=== PATIENT | male | born 1945 | race Caucasian/White ===

== ENCOUNTER 2016-11-15 16:08 | Emergency (ER) | payer MEDICARE, OTHER ==
[2016-11-15] VITALS (7 sets, daily range): BP systolic 102–143; BP diastolic 67–76; PULSE 90–100; RESP 16–20; TEMP 98.1–102.8; O2SAT 90–99
[~2016-11-15 16:08] MED LIST: LEVA500T PO
[2016-11-15] MEDS ORDERED: SODIUM CHLOR 0.9% 1000 ML INJ 1,000 ML IV ONE ×2 (17:27)
[2016-11-15] MEDS ORDERED: ACETAMINOPHEN 325 MG TAB PO ONE (17:30)
--- NOTE | 2016-11-15 17:47 | RADHPO ---
EXAM DATE/TIME: 11/15/2016 17:37 [facility] COMPARISON: No previous studies available for comparison. INDICATIONS : Fever MEDICAL HISTORY : None. SURGICAL HISTORY : None. ENCOUNTER: Initial ACUITY: 2 days PAIN SCORE: 3/10 LOCATION: Bilateral chest FINDINGS: There is trace bibasilar atelectasis. No pleural effusion. No pneumothorax. Heart size normal. Old, healed left rib fractures are noted. CONCLUSION: Trace bibasilar atelectasis. No other acute cardiopulmonary disease demonstrated. Multiple old, heale d left rib fractures. Wesley Antonio MD on November 15, 2016 at 17:45 Board Certified Radiologist. This report was verified electronically.
--- NOTE | 2016-11-15 18:01 | PD ---
HPI . Fever and fatigue Chief Complaint: Fever Time Seen by Provider: 17:19 Travel History International Travel<30 days: No Contact w/Intl Traveler<30days: No Traveled to known affect area: No History of Present Illness HPI The patient presents with a one-day history of fever and fatigue. He states that he felt similarly in the past when he had a UTI. He currently has a stent in his right ureter because of kidney stones. He's had the stent for about 2 weeks. He states that he has been urinating more frequently since the stent was placed that there has been no recent change in his urination. He denies dysuria or malodorous urine. He reports a temperature at home of 103. Patient reports no other obvious cause for fever such as cold symptoms, cough, vomiting and diarrhea. PFSH Past Medical History Hx Anticoagulant Therapy: No Blood Disorders: No Cancer: No Cardiovascular Problems: No Chemotherapy: No Cerebrovascular Accident: No Diabetes: No Diminished Hearing: No Endocrine: No Gastrointestinal Disorders: No Genitourinary: No Hepatitis: No Hiatal Hernia: No Hypertension: No Immune Disorder: No Inguinal Hernia: Yes Implanted Vascular Access Dvce: No Kidney Stones: Yes Medical other: No Musculoskeletal: No Neurologic: No Psychiatric: No Reproductive: No Respiratory: No Immunizations Current: Yes Thyroid Disease: No Past Surgical History Abdominal Surgery: No AICD: No Body Medical Devices: BILATERAL URETERAL STENTS Cardiac Surgery: No Ear Surgery: No Endocrine Surgery: No Eye Surgery: No Genitourinary Surgery: Yes (lithotripsy, LEFT, BILATERAL URETERAL STENTS) Gynecologic Surgery: No Joint Replacement: No Neurologic Surgery: No Oral Surgery: No Pacemaker: No Thoracic Surgery: No Other Surgery: Yes (Inguinal hernia repair) Social History Alcohol Use: No Tobacco Use: No Substance Use: No Allergies-Medications (Allergen,Severity, Reaction): Coded Allergies: Aspirin (Verified Allergy, Severe, HIVES, 10/15/16) Reported Meds & Prescriptions Reported Meds & Active Scripts Active No Active Prescriptions or Reported Medications Review of Systems Except as stated in HPI: all other systems reviewed are Neg General / Constitutional: Positive: Fever, Chills, Other (fatigue) HENT: No: Sore Throat, Rhinitis, Rhinorrhea, Congestion, Neck Stiffness Respiratory: No: Cough Gastrointestinal: No: Nausea, Vomiting, Diarrhea Genitourinary: Positive: Frequency, No: Dysuria Physical Exam Narrative GENERAL: Patient is awake and alert and acts like he doesn't feel well. SKIN: Warm and dry. HEAD: Atraumatic. Normocephalic. EYES: Pupils equal and round. ENT: No nasal bleeding or discharge. Mucous membranes pink and moist. NECK: Trachea midline. CARDIOVASCULAR: Regular rate and rhythm. RESPIRATORY: No accessory muscle use. Lungs are clear to auscultation with good air movement throughout. GASTROINTESTINAL: Abdomen soft, non-tender, nondistended. There is no CVA tenderness. MUSCULOSKELETAL: No obvious deformities. No edema. NEUROLOGICAL: Awake and alert. No obvious cranial nerve deficits. Motor grossly within normal limits. Normal speech. PSYCHIATRIC: Appropriate mood and affect; insight and judgment normal. Data Data Last Documented VS Vital Signs Date Time Temp Pulse Resp B/P Pulse Ox O2 Delivery O2 Flow Rate FiO2 11/15/16 18:41 91 18 102/67 95 Nasal Cannula 2 11/15/16 17:27 101.2 Orders Electrocardiogram (11/15/16 17:27) Complete Blood Count With Diff (11/15/16 17:27) Comprehensive Metabolic Panel (11/15/16 17:27) Lactic Acid Sepsis Protocol (11/15/16 17:27) Urinalysis - C+S If Indicated (11/15/16 17:27) Blood Culture (11/15/16 17:27) Chest, Single Ap (11/15/16 17:27) Iv Access Insert/Monitor (11/15/16 17:27) Acetaminophen (Tylenol) (11/15/16 17:30) Sodium Chlor 0.9% 1000 Ml Inj (Ns 1000 M (11/15/16 17:27) Sodium Chlor 0.9% 1000 Ml Inj (Ns 1000 M (11/15/16 17:27) Urine Culture (11/15/16 17:47) Ceftriaxone Inj (Rocephin Inj) (11/15/16 19:00) Labs Laboratory Tests Test 11/15/16 17:47 White Blood Count 14.6 TH/MM3 Red Blood Count 4.76 MIL/MM3 Hemoglobin 14.5 GM/DL Hematocrit 43.2 % Mean Corpuscular Volume 90.7 FL Mean Corpuscular Hemoglobin 30.5 PG Mean Corpuscular Hemoglobin 33.6 % Concent Red Cell Distribution Width 13.2 % Platelet Count 205 TH/MM3 Mean Platelet Volume 8.2 FL Neutrophils (%) (Auto) 84.8 % Lymphocytes (%) (Auto) 5.7 % Monocytes (%) (Auto) 9.2 % Eosinophils (%) (Auto) 0.1 % Basophils (%) (Auto) 0.2 % Neutrophils # (Auto) 12.5 TH/MM3 Lymphocytes # (Auto) 0.8 TH/MM3 Monocytes # (Auto) 1.3 TH/MM3 Eosinophils # (Auto) 0.0 TH/MM3 Basophils # (Auto) 0.0 TH/MM3 CBC Comment DIFF FINAL Differential Comment Urine Color YELLOW Urine Turbidity CLOUDY Urine pH 7.0 Urine Specific Stitzer 1.018 Urine Protein 100 mg/dL Urine Glucose (UA) NEG mg/dL Urine Ketones NEG mg/dL Urine Occult Blood LARGE Urine Nitrite NEG Urine Bilirubin NEG Urine Leukocyte Esterase LARGE Urine RBC INNUM /hpf Urine WBC INNUM /hpf Urine WBC Clumps FEW Urine Squamous Epithelial 0-2 /hpf Cells Urine Bacteria MOD /hpf Microscopic Urinalysis Comment CULTURE INDICATED Sodium Level 136 MEQ/L Potassium Level 4.0 MEQ/L Chloride Level 101 MEQ/L Carbon Dioxide Level 25.8 MEQ/L Anion Gap 9 MEQ/L Blood Urea Nitrogen 20 MG/DL Creatinine 1.90 MG/DL Estimat Glomerular Filtration 35 ML/MIN Rate Random Glucose 133 MG/DL Lactic Acid Level 1.4 mmol/L Calcium Level 9.6 MG/DL Total Bilirubin 1.2 MG/DL Aspartate Amino Transf 15 U/L (AST/SGOT) Alanine Aminotransferase 18 U/L (ALT/SGPT) Alkaline Phosphatase 77 U/L Total Protein 7.4 GM/DL Albumin 3.3 GM/DL [facility] Medical Decision Making Medical Screen Exam Complete: Yes Emergency Medical Condition: Yes Interpretation(s) EKG shows a sinus rhythm with no ST segment elevation or depression. Rate is 93. Differential Diagnosis Differential diagnosis of weakness includes but is not limited to infection, CVA , electrolyte disturbance, renal failure, hypoglycemia, UTI, ACS Narrative Course Patient presents complaining with fever and fatigue. He'll have a sepsis workup. CBC has a white count of 14.6. Electrolytes are unremarkable. Lactic acid is 1.4. UA shows large blood, large leukocyte esterase, too numerous to count red cells , too numerous to count white cells, white blood cell clumps and moderate bacteria. Chest x-ray shows no infiltrate. The chest x-ray was independently viewed by me. Patient states that he feels well enough to go home. Critical Care Narrative Aggregate critical care time was 20 minutes. Time to perform other separately billable procedures was not included in the critical care time. My time did not include minutes spent treating any other patients simultaneously or on activities that did not directly contribute to the patient's treatment. The services I provided to this patient were to treat and/or prevent clinically significant deterioration that could result in: organ failure secondary to sepsis I provided critical care services requiring my management, as noted below: Chart data review, documentation time, medication orders and management, vital sign assessments/reviewing monitor data, ordering and reviewing lab tests, ordering and interpreting/reviewing x-rays and diagnostic studies, care of the patient and discussion of the patient with the admitting physicians. Diagnosis Primary Impression: Urinary tract infection Qualified Code: N30.00 - Acute cystitis without hematuria Additional Impression: Fever Qualified Code: R50.9 - Fever, unspecified fever cause Med/Other Pt SpecificInfo: Prescription(s) given Scripts Sulfamethoxazole-Trimethoprim (Bactrim DS)800-160 Mg Tab1 Tab PO BID #20 TAB Ref 0 Prov:Viola Flores MD 11/15/16 Disposition: DISCHARGE HOME Condition: Stable Viola Flores MD Nov 15, 2016 18:01
[2016-11-15 18:10] LABS: BLOOD, URINE LARGE (NEG); GLUCOSE,URINE NEG (NEG); KETONE, URINE NEG (NEG); NITRITE,URINE NEG (NEG)
[2016-11-15 18:15] LABS: AUTOMATED NEUTROPHIL # 12.5 TH/MM3 (1.8-7.7); BASOPHIL % 0.2 % (0.0-2.0); CHLORIDE 101 MEQ/L (98-107); EOSINOPHIL % 0.1 % (0.0-4.0); HEMATOCRIT 43.2 % (39.0-51.0); HEMO FLAGS DIFF FINAL; LYMPH % 5.7 % (9.0-44.0); LYMPHOCYTE # 0.8 TH/MM3 (1.0-4.8); MEAN CELL VOLUME 90.7 FL (80.0-100.0); MEAN CORPUSCULAR HEMOGLOBIN 30.5 PG (27.0-34.0); MEAN CORPUSCULAR HGB CONC 33.6 % (32.0-36.0); MONO % 9.2 % (0.0-8.0); NEUT % 84.8 % (16.0-70.0); PLATELET COUNT 205 TH/MM3 (150-450); RED BLOOD COUNT 4.76 MIL/MM3 (4.50-5.90); RED CELL DISTRIBUTION WIDTH 13.2 % (11.6-17.2); SODIUM (NA) 136 MEQ/L (136-145); WHITE BLOOD COUNT 14.6 TH/MM3 (4.0-11.0)
[2016-11-15 18:19] LABS: ANION GAP 9 MEQ/L (5-15); BICARBONATE 25.8 MEQ/L (21.0-32.0)
[2016-11-15 18:20] LABS: BLOOD UREA NITROGEN 20 MG/DL (7-18)
[2016-11-15 18:23] LABS: ALT (GPT) 18 U/L (12-78); AST (GOT) 15 U/L (15-37); GLOMERULAR FILTRATION RATE 35 ML/MIN (>89)
[2016-11-15 18:24] LABS: TOTAL BILIRUBIN ADULT 1.2 MG/DL (0.2-1.0)
[2016-11-15 18:25] LABS: ALKALINE PHOSPHATASE 77 U/L (45-117)
[2016-11-15 18:29] LABS: BACTERIA, URINE MOD /hpf; RBC, URINE INNUM /hpf (0-3); SQUAMOUS EPITHELIAL CELL URINE 0-2 /hpf (0-5); URINE COLOR YELLOW (YELLW/STRAW); WBC, URINE INNUM /hpf (0-5)
[2016-11-15 18:30] LABS: COMMENT (UR) CULTURE INDICATED; CULTURE IF INDICATED CULTURE INDICATED
[2016-11-15] MEDS ORDERED: cefTRIAXone INJ 1,000 MG in SODIUM CHLORIDE 0.9% INJ 100 ML IV ONE (19:00)
[2016-11-15] MEDS ORDERED: BACT800T5 PO (19:44)
--- NOTE | 2016-11-16 23:55 | EKG ---
Date Performed: 11/15/2016 Time Performed: 17:43:08 PTAGE: 71 years EKG: Sinus rhythm with PAC(s) Borderline ECG PREVIOUS TRACING : 01/29/2014 00.37 DOCTOR: Christie Shannon Interpretating Date/Time 11/16/2016 23:47:53
== END 2016-11-15 21:05 | disposition home or self-care (01) ==
LOC: PHED 16:08
DX: N39.0 Urinary tract infection, site not specified (principal); B95.2 Enterococcus as the cause of diseases classified elsewhere; R50.9 Fever, unspecified; I49.1 Atrial premature depolarization
CPT/HCPCS: 71010; 80053; 81001; 83605; 85025; 87040; 87077; 87086; 87186; 93005; 96361; 96365; 99285; J0696; J7030

== ENCOUNTER 2016-11-16 08:24 | Inpatient (IN) | payer OTHER, MEDICARE ==
[2016-11-16] VITALS (14 sets, daily range): BP systolic 78–126; BP diastolic 54–97; PULSE 74–96; RESP 16–22; TEMP 98.1–102.1; O2SAT 89–98
[~2016-11-16] VITALS: Ht 182.9 cm; Wt 105.7 kg
[~2016-11-16 08:24] MED LIST changes: +BACT800T5 PO; -LEVA500T PO
[2016-11-16] MEDS ORDERED: SODIUM CHLOR 0.9% 1000 ML INJ 1,000 ML IV ONE ×3 (08:45→11:00)
--- NOTE | 2016-11-16 08:54 | PD ---
HPI Chief Complaint: GI Complaint Time Seen by Provider: 08:38 Travel History International Travel<30 days: No Contact w/Intl Traveler<30days: No Traveled to known affect area: No History of Present Illness HPI 71-year-old male complains of generalized malaise and weakness and diarrhea and fever. Patient started having fever generalized malaise and weakness 2 days ago. Patient was seen in the emergency room yesterday and diagnosed with UTI. Patient was given Rocephin 1 g IV and discharged with prescription for Bactrim DS. CBC with WBC 14.6. Lactic acid 1.4. UA positive for WBC RBC and bacteria. Chest x-ray shows no acute consolidation. Patient has increasing weakness and started having diarrhea yesterday and had fever this morning to 101 . Patient fell twice this morning has abrasions of the forehead and the face and the left ear. Patient denies loss of consciousness. Patient denies any headache or neck pain. Patient denies any chest pain or shortness of breath. Patient denies abdominal pain. Patient denies any focal weakness or numbness of extremity. Patient has history recurrent UTI in the past. Patient has history of kidney stone status post right ureteral stent placement about 2 weeks ago. Patient has history of bilateral renal and ureteral stones in the past status post ureteral stent placement by Junito Bentley and most recently Dr. Vasquez. Patient denies any dysuria or frequency. PFSH Past Medical History Hx Anticoagulant Therapy: No Blood Disorders: No Cancer: No Cardiovascular Problems: No Chemotherapy: No Cerebrovascular Accident: No Diabetes: No Diminished Hearing: No Endocrine: No Gastrointestinal Disorders: No Genitourinary: No Hepatitis: No Hiatal Hernia: No Hypertension: No Immune Disorder: No Inguinal Hernia: Yes Implanted Vascular Access Dvce: No Kidney Stones: Yes Musculoskeletal: No Neurologic: No Psychiatric: No Reproductive: No Respiratory: No Immunizations Current: Yes Thyroid Disease: No Past Surgical History Abdominal Surgery: No AICD: No Body Medical Devices: BILATERAL URETERAL STENTS Cardiac Surgery: No Ear Surgery: No Endocrine Surgery: No Eye Surgery: No Genitourinary Surgery: Yes (lithotripsy, LEFT, BILATERAL URETERAL STENTS) Gynecologic Surgery: No Joint Replacement: No Neurologic Surgery: No Oral Surgery: No Pacemaker: No Thoracic Surgery: No Other Surgery: Yes (Inguinal hernia repair) Social History Alcohol Use: No Tobacco Use: No Substance Use: No Allergies-Medications (Allergen,Severity, Reaction): Coded Allergies: Aspirin (Verified Allergy, Severe, HIVES, 11/16/16) Reported Meds & Prescriptions Reported Meds & Active Scripts Active Bactrim DS (Sulfamethoxazole-Trimethoprim) 800-160 Mg Tab 1 Tab PO BID Review of Systems General / Constitutional: Positive: Fever Eyes: No: Visual changes HENT: No: Headaches Cardiovascular: No: Chest Pain or Discomfort Respiratory: No: Shortness of Breath Gastrointestinal: No: Abdominal Pain Genitourinary: No: Dysuria Musculoskeletal: No: Pain Skin: No Rash Neurologic: No: Weakness Psychiatric: No: Depression Endocrine: No: Polydipsia Hematologic/Lymphatic: No: Easy Bruising Physical Exam Narrative GENERAL: Well-nourished, well-developed patient. SKIN: Warm and dry. HEAD: Normocephalic. Patient has multiple abrasions to the forehead, the right cheek, left earlobe. No tenderness on palpation bony structure. EYES: No scleral icterus. No injection or drainage. NECK: Supple, trachea midline. No JVD or lymphadenopathy. CARDIOVASCULAR: Regular rate and rhythm without murmurs, gallops, or rubs. RESPIRATORY: Breath sounds equal bilaterally. No accessory muscle use. GASTROINTESTINAL: Abdomen soft, non-tender, nondistended. MUSCULOSKELETAL: No cyanosis, or edema. BACK: Nontender without obvious deformity. No CVA tenderness. Neurologic exam: Patient is lethargic. Patient answers patient's appropriately. No obvious focal neurological deficit. Data Data Last Documented VS Vital Signs Date Time Temp Pulse Resp B/P Pulse Ox O2 Delivery O2 Flow Rate FiO2 11/16/16 10:02 84 16 100/64 96 Nasal Cannula 2 11/16/16 09:10 100.6 Orders Electrocardiogram (11/16/16 08:39) Complete Blood Count With Diff (11/16/16 08:39) Comprehensive Metabolic Panel (11/16/16 08:39) Creatine Kinase (Cpk) (11/16/16 08:39) Troponin I (11/16/16 08:39) Prothrombin Time / Inr (Pt) (11/16/16 08:39) Act Partial Throm Time (Ptt) (11/16/16 08:39) Blood Culture (11/16/16 08:39) Urinalysis - C+S If Indicated (11/16/16 08:39) Thyroid Stimulating Hormone (11/16/16 08:39) Chest, Single Ap (11/16/16 08:39) Iv Access Insert/Monitor (11/16/16 08:39) Ecg Monitoring (11/16/16 08:39) Oximetry (11/16/16 08:39) Lactic Acid (11/16/16 08:39) Sodium Chlor 0.9% 1000 Ml Inj (Ns 1000 M (11/16/16 08:45) Sodium Chlor 0.9% 1000 Ml Inj (Ns 1000 M (11/16/16 08:45) Acetaminophen (Tylenol) (11/16/16 09:00) Piperacil-Tazo 3.375 Gm Premix (Zosyn 3. (11/16/16 09:00) Vancomycin Inj (Vancomycin Inj) (11/16/16 09:00) Ct Brain W/O Iv Contrast(Rout) (11/16/16 09:07) CKMB (11/16/16 08:50) CKMB% (11/16/16 08:50) Ct Abd/Pel W/O Iv Contrast (11/16/16 10:32) Admit Order (Ed Use Only) (11/16/16 10:35) Labs Laboratory Tests Test 11/16/16 08:50 White Blood Count 14.9 TH/MM3 Red Blood Count 4.18 MIL/MM3 Hemoglobin 12.8 GM/DL Hematocrit 37.7 % Mean Corpuscular Volume 90.2 FL Mean Corpuscular Hemoglobin 30.6 PG Mean Corpuscular Hemoglobin 34.0 % Concent Red Cell Distribution Width 12.9 % Platelet Count 158 TH/MM3 Mean Platelet Volume 7.9 FL Neutrophils (%) (Auto) 84.2 % Lymphocytes (%) (Auto) 6.2 % Monocytes (%) (Auto) 7.7 % Eosinophils (%) (Auto) 0.0 % Basophils (%) (Auto) 1.9 % Neutrophils # (Auto) 12.6 TH/MM3 Lymphocytes # (Auto) 0.9 TH/MM3 Monocytes # (Auto) 1.1 TH/MM3 Eosinophils # (Auto) 0.0 TH/MM3 Basophils # (Auto) 0.3 TH/MM3 CBC Comment AUTO DIFF Differential Comment AUTO DIFF CONFIRMED Prothrombin Time 14.0 SEC Prothromb Time International 1.3 RATIO Ratio Activated Partial 33.7 SEC Thromboplast Time Sodium Level 135 MEQ/L Potassium Level 3.9 MEQ/L Chloride Level 102 MEQ/L Carbon Dioxide Level 21.1 MEQ/L Anion Gap 12 MEQ/L Blood Urea Nitrogen 23 MG/DL Creatinine 1.90 MG/DL Estimat Glomerular Filtration 35 ML/MIN Rate Random Glucose 139 MG/DL Lactic Acid Level 1.3 mmol/L Calcium Level 9.3 MG/DL Total Bilirubin 1.0 MG/DL Aspartate Amino Transf 33 U/L (AST/SGOT) Alanine Aminotransferase 20 U/L (ALT/SGPT) Alkaline Phosphatase 46 U/L Total Creatine Kinase 684 U/L Creatine Kinase MB 1.1 NG/ML Creatine Kinase MB % 0.2 % Troponin I 0.02 NG/ML Total Protein 6.8 GM/DL Albumin 3.0 GM/DL Thyroid Stimulating Hormone 0.456 uIU/ML [facility] Medical Decision Making Medical Screen Exam Complete: Yes Emergency Medical Condition: Yes Interpretation(s) 9:45 AM. CBC WBC 14.9. Hemoglobin 12.8 hematocrit 37.7. 84 neutrophil. Sodium 135. Lactic acid 1.3. BUN 23. Creatinine 1.90. Total CK 684. Normal MB fraction. INR 1.3. 10:[address] scan of brain shows no acute intracranial abnormality. Left ethmoid and maxillary sinus disease. Chest x-ray shows no acute consolidation. Differential Diagnosis Differential diagnosis including UTI, sepsis, electrolyte imbalance, dehydration. Narrative Course 71-year-old male with fever, weakness, hypotension, and history of UTI. Patient is septic. Normal saline solution 2 L IV bolus. Normal saline solution 1 25 cc an hour. Zosyn 3.375 g IV. Vancomycin 1 g IV. I spoke with Dr. Vasquez, his urologist. Advised referral to urologist on-call today at [place]. Dr. Godwin, urologist on-call advised patient to be admitted to the main hospital and urology consultation. Normal saline solution additional 1 L IV bolus. Diagnosis Primary Impression: Severe sepsis Additional Impressions: UTI (urinary tract infection) Qualified Code: N30.01 - Acute cystitis with hematuria Acute kidney injury superimposed on chronic kidney disease Jaylon River MD Nov 16, 2016 08:54
[2016-11-16 08:57] LABS: AUTOMATED NEUTROPHIL # 12.6 TH/MM3 (1.8-7.7); BASOPHIL # 0.3 TH/MM3 (0-0.2); BASOPHIL % 1.9 % (0.0-2.0); HEMATOCRIT 37.7 % (39.0-51.0); HEMO FLAGS AUTO DIFF; LYMPH % 6.2 % (9.0-44.0); LYMPHOCYTE # 0.9 TH/MM3 (1.0-4.8); MEAN CELL VOLUME 90.2 FL (80.0-100.0); MEAN CORPUSCULAR HEMOGLOBIN 30.6 PG (27.0-34.0); MONO % 7.7 % (0.0-8.0); NEUT % 84.2 % (16.0-70.0); PLATELET COUNT 158 TH/MM3 (150-450); RED BLOOD COUNT 4.18 MIL/MM3 (4.50-5.90); RED CELL DISTRIBUTION WIDTH 12.9 % (11.6-17.2); WHITE BLOOD COUNT 14.9 TH/MM3 (4.0-11.0)
[2016-11-16] MEDS ORDERED: VANCOMYCIN INJ 1,000 MG in SODIUM CHLOR 0.9% 250 ML INJ 250 ML IV ONE (09:00)
[2016-11-16] MEDS ORDERED: ACETAMINOPHEN 325 MG TAB PO ONE (09:00)
[2016-11-16] MEDS ORDERED: PIPERACIL-TAZO 3.375 GM PREMIX 50 ML IV ONE (09:00)
[2016-11-16 09:07] LABS: CHLORIDE 102 MEQ/L (98-107); POTASSIUM 3.9 MEQ/L (3.5-5.1); SODIUM (NA) 135 MEQ/L (136-145)
[2016-11-16 09:11] LABS: ANION GAP 12 MEQ/L (5-15); APTT (PATIENT) 33.7 SEC (24.3-30.1); BICARBONATE 21.1 MEQ/L (21.0-32.0); BLOOD UREA NITROGEN 23 MG/DL (7-18); INTERNATIONAL NORMALIZED RATIO 1.3 RATIO
[2016-11-16 09:14] LABS: ALT (GPT) 20 U/L (12-78)
[2016-11-16 09:25] LABS: SCAN/DIFF AUTO DIFF CONFIRMED
--- NOTE | 2016-11-16 09:55 | RADHPO ---
EXAM DATE/TIME: 11/16/2016 08:49 [facility] COMPARISON: CHEST SINGLE AP, November 15, 2016, 17:37. INDICATIONS : Fever. MEDICAL HISTORY : None. SURGICAL HISTORY : None. ENCOUNTER: Initial ACUITY: 2 days PAIN SCORE: 3/10 LOCATION: Bilateral chest FINDINGS: A single view of the chest demonstrates the lungs to be symmetrically aerated without evidence of mas s, infiltrate or effusion. The cardiomediastinal contours are unremarkable. Multiple remote left hea led rib fractures. CONCLUSION: 1. Minimal basilar atelectasis. Stable exam since November 2. Gabriel Hair MD on November 16, 2016 at 9:50 Board Certified Radiologist. This report was verified electronically.
[2016-11-16 09:58] LABS: ALKALINE PHOSPHATASE 46 U/L (45-117); AST (GOT) 33 U/L (15-37); CREATINE KINASE 684 U/L (39-308); GLOMERULAR FILTRATION RATE 35 ML/MIN (>89)
--- NOTE | 2016-11-16 09:59 | RADHPO ---
EXAM DATE/TIME: 11/16/2016 09:48 [facility] COMPARISON: No previous studies available for comparison. INDICATIONS : Fell two times this morning. Frontal abrasions. Weakness. RADIATION DOSE: 60.10 CTDIvol (mGy) MEDICAL HISTORY : Renal calculi. SURGICAL HISTORY : Inguinal hernia repair. ENCOUNTER: Initial ACUITY: 1 day PAIN SCALE: 0/10 LOCATION: frontal TECHNIQUE: Multiple contiguous axial images were obtained of the head. Using automated exposure control and adj ustment of the mA and/or kV according to patient size, radiation dose was kept as low as reasonably a chievable to obtain optimal diagnostic quality images. FINDINGS: CEREBRUM: The ventricles are normal for age. No evidence of midline shift, mass lesion, hemorrhage or acute in farction. No extra-axial fluid collections are seen. POSTERIOR FOSSA: The cerebellum and brainstem are intact. The 4th ventricle is midline. The cerebellopontine angle i s unremarkable. EXTRACRANIAL: The visualized portion of the orbits is intact. SKULL: The calvaria is intact. No evidence of skull fracture. Partial opacification left ethmoid air cells. Left maxillary sinus mucosal thickening. CONCLUSION: 1. No acute intracranial abnormalities. Left-sided ethmoid and maxillary sinus disease. Gabriel Hair MD on November 16, 2016 at 9:55 Board Certified Radiologist. This report was verified electronically.
[2016-11-16 10:14] LABS: CKMB 1.1 NG/ML (0.5-3.6)
[2016-11-16] MEDS ORDERED: ONDANSETRON HCL 4 MG/2 ML VIAL IV PRN (10:45)
[2016-11-16] MEDS ORDERED: SODIUM CHLORIDE 0.9% FLUSH 5 ML FLUSH IVF PRN (10:45)
[2016-11-16] MEDS ORDERED: ACETAMINOPHEN 325 MG TAB PO PRN ×3 (10:45→11:45)
--- NOTE | 2016-11-16 11:33 | RADHPO ---
EXAM DATE/TIME: 11/16/2016 11:15 [facility] COMPARISON: No previous studies available for comparison. INDICATIONS : Generalized weakness. Status post right ureteral stent placement two weeks ago. Recurrent urinary tra ct infection. ORAL CONTRAST: No oral contrast ingested. RADIATION DOSE: 23.73 CTDIvol (mGy) MEDICAL HISTORY : Renal calculi. SURGICAL HISTORY : Inguinal hernia repair. ENCOUNTER: Initial ACUITY: 2 days PAIN SCALE: 0/10 LOCATION: Right abdomen/pelvis TECHNIQUE: Volumetric scanning of the abdomen and pelvis was performed. Using automated exposure control and ad justment of the mA and/or kV according to patient size, radiation dose was kept as low as reasonably achievable to obtain optimal diagnostic quality images. FINDINGS: There is a right-sided ureteral stent looped proximally in the right renal pelvis and distally in the bladder. There is mild residual right-sided hydronephrosis. There is an fairly large 2.3 x 1 cm calc ulus in the right renal pelvis. There are numerous additional calculi in the right kidney in the lowe r and mid pole ranging in size from about 1 mm to 5 mm. There is extensive right-sided perinephric st randing and mild left perinephric stranding. There are multiple right-sided renal cysts measuring up to about 4.7 cm in diameter in the midpole. There is also a hyperdense 1 cm lesion in the upper pole likely a hemorrhagic or proteinaceous cyst. There are multiple nonobstructing left renal calculi in the mid and lower pole ranging in size from a bout 2-5 mm. No left-sided hydronephrosis and no evidence for obstructive uropathy. No bladder calcul i are seen. Lung bases demonstrate some dependent atelectasis. No acute findings in the liver, spleen, adrenals o r pancreas. No calcified gallstones or biliary ductal dilatation. Mild ileus. Colonic diverticula wit hout diverticulitis. No acute bony abnormalities. CONCLUSION: 1. Right-sided ureteral stent present with moderate right perinephric stranding and mild left perinep hric stranding. Mild residual right hydronephrosis. Large calculus in right renal pelvis and numerous additional bilateral nonobstructing calculi. Multiple right renal cysts. Gabriel Hair MD on November 16, 2016 at 11:24 Board Certified Radiologist. This report was verified electronically.
[2016-11-16] MEDS ORDERED: DOCUSATE SODIUM 100 MG CAP PO SCH (11:45)
[2016-11-16] MEDS ORDERED: NALOXONE HCL 0.4 MG/ML AMP IV PRN (11:45)
[2016-11-16] MEDS ORDERED: MAGNESIUM HYDROXIDE SUSP 30 ML CUP PO PRN (11:45)
[2016-11-16] MEDS ORDERED: HYDROmorphone HCL PF 1 MG/ML VIAL IV PRN (11:45)
[2016-11-16] MEDS ORDERED: Vancomycin Consult Pharmacy 1 EA OTHER SCH (11:45)
[2016-11-16] MEDS ORDERED: SODIUM CHLORIDE 0.9% FLUSH 5 ML FLUSH FLUSH PRN (11:45)
[2016-11-16] MEDS ORDERED: ONDANSETRON HCL 4 MG/2 ML VIAL IVP PRN (11:45)
[2016-11-16 11:48] LABS: BLOOD, URINE LARGE (NEG); GLUCOSE,URINE NEG (NEG); KETONE, URINE NEG (NEG); NITRITE,URINE NEG (NEG)
[2016-11-16 11:49] LABS: METHOD OF COLLECTION CLEAN CATCH; URINE COLOR YELLOW (YELLW/STRAW)
[2016-11-16 11:56] LABS: BACTERIA, URINE FEW /hpf; COMMENT (UR) CULTURE INDICATED; COMMENT2 (UR) MUCOUS PRESENT; CULTURE IF INDICATED CULTURE INDICATED; SQUAMOUS EPITHELIAL CELL URINE 0-5 /hpf (0-5); WBC, URINE 100-200 /hpf (0-5)
[2016-11-16] MEDS: DOCUSATE SODIUM 100 MG CAP PO SCH ×2 (12:15→20:10)
[2016-11-16] MEDS: SODIUM CHLOR 0.9% 1000 ML INJ 1,000 ML IV SCH ×2 (12:55→20:10)
[2016-11-16] MEDS ORDERED: PIPERACIL-TAZO 3.375 GM PREMIX 50 ML IV SCH (15:00)
--- NOTE | 2016-11-16 17:45 | HHI.HP ---
[facility] Service [facility] Primary [facility] Physician [facility] Admission Diagnosis severe sepsis. UTI. Acute on chronic renal disease. Diagnoses: Chief Complaint: Weakness Travel History International Travel<30 Days: No Contact w/Intl Traveler <30 Da: No Traveled to Known Affected Are: No Sepsis Criteria SIRS Criteria (2 or more): Temp > 100.9 or < 96.8, Heart rate over 90 Sepsis Criteria (SIRS+source): Infect source susp/known Criteria Outcome: Meets sepsis criteria History of Present Illness The patient is a 71-year-old male with a past medical history of kidney stones who is presenting to the hospital with significant weakness and falls. The patient says that on he had double hernia repair and was released from the hospital even though he had been unable to urinate today. He went to the [facility] where a Olivares was placed and he followed up at the [facility] to have it removed. He has been following up with urology and had a cystoscopy 2 weeks ago which revealed kidney stones. A stent was placed. This Tuesday the patient started to feel very weak and hot. He was sitting at the table and all of a sudden just fell down. He went to the emergency department yesterday and was given Bactrim after receiving a dose of antibiotics IV for a urinary tract infection. He continued to have symptoms of right years and weakness as well as fever so he came to the hospital. He has endorsed a diarrhea that is the color of black water. Says he has a history of kidney stones and wants know where it's coming from. He endorses decreased by mouth intake over the past few days. He denies any nausea or vomiting. Review of Systems Constitutional: COMPLAINS OF: Diaphoretic episodes, Fatigue, Fever, Chills, Change in appetite Endocrine: COMPLAINS OF: Heat/cold intolerance Cardiovascular: DENIES: Lower Extremity Edema Gastrointestinal: COMPLAINS OF: Diarrhea, DENIES: Nausea, Vomiting Genitourinary: COMPLAINS OF: Dysuria Neurologic: COMPLAINS OF: Localized weakness, Poor Balance Past Family Social History Past Medical History Kidney stones Bilateral ureteral stents Lithotripsy Bilateral inguinal repair Allergies: Coded Allergies: Aspirin (Verified Allergy, Severe, HIVES, 11/16/16) Active Ordered Medications Current Medications Medications (Trade) Dose Ordered Sig/Chris Route Start Time Stop Time Status Last Admin (Zofran Inj) 4 mg Q6H PRN IV 11/16/16 10:45 (NS Flush) 2 ml BID IVF 11/16/16 21:00 IV Flush 2 ml 2 ml UNSCH PRN IVF 11/16/16 10:45 (NS 1000 ml Inj) 1,000 ml @ 150 mls/hr Q6H40M IV 11/16/16 11:40 11/16/16 12:55 (Tylenol) 650 mg Q4H PRN PO 11/16/16 11:45 (Milk Of Magnesia Liq) 30 ml Q12H PRN PO 11/16/16 11:45 (Tylenol) 650 mg Q6H PRN PO 11/16/16 11:45 ([place] 5-325 Mg) 1 tab Q4H PRN PO 11/16/16 11:45 ([place] 7.5-325 Mg) 1 tab Q4H PRN PO 11/16/16 11:45 (Dilaudid Pf Inj) 0.5 mg Q3H PRN IV 11/16/16 11:45 Naloxone HCl 0.4 mg 0.4 mg UNSCH PRN IV 11/16/16 11:45 (Vancomycin Consult Pharmacy) 0 ml @ 0 mls/hr UNSCH OTHER 11/16/16 11:45 Docusate Sodium 100 mg 100 mg Q12HR PO 11/16/16 12:15 (Vancomycin Inj/ NS 250 ml Inj) 262.5 ml @ 250 mls/hr DAILY@06 IV 11/17/16 06:00 Miscellaneous Information SPECIFIC LAB TO BE DRAWN:VANCO TROUGH DATE... ONCE ONCE XX 11/19/16 05:45 11/19/16 05:46 (Zosyn 3.375 Gm Premix) 50 ml @ 100 mls/hr Q6H IV 11/16/16 21:00 Family History Kidney stones in father. Social History The pt does not smoke, drink or use illicit substances. Physical Exam Vital Signs Vital Signs Date Time Temp Pulse Resp B/P Pulse Ox O2 Delivery O2 Flow Rate FiO2 11/16/16 16:00 100.0 82 22 110/66 95 11/16/16 16:00 82 11/16/16 14:10 98.1 86 20 126/97 95 Room Air 11/16/16 12:55 98.3 92 16 97/63 95 Room Air 11/16/16 12:04 98 Nasal Cannula 1.00 11/16/16 11:40 74 16 106/62 97 Room Air 11/16/16 10:02 84 16 100/64 96 Nasal Cannula 2 11/16/16 09:33 84 16 101/58 97 Nasal Cannula 2 11/16/16 09:12 89 Room Air 11/16/16 09:10 100.6 91 16 99/60 96 Nasal Cannula 2 11/16/16 08:31 102.1 96 18 78/57 92 Physical Exam GENERAL: Well-nourished, well-developed patient. SKIN: Warm and dry. HEAD: Normocephalic. Patient has multiple abrasions to the forehead, the right cheek, left earlobe. No tenderness on palpation bony structure. EYES: No scleral icterus. No injection or drainage. NECK: Supple, trachea midline. No JVD or lymphadenopathy. CARDIOVASCULAR: Tachycardic without murmurs, gallops, or rubs. RESPIRATORY: Breath sounds equal bilaterally. No accessory muscle use. GASTROINTESTINAL: Abdomen soft, mild suprapubic tenderness, nondistended. MUSCULOSKELETAL: No cyanosis, or edema. BACK: Nontender without obvious deformity. No CVA tenderness. NEURO: No obvious focal neurological deficit. PSYCH: Mood and affect appropriate. Laboratory Laboratory Tests Test 11/16/16 11/16/16 08:50 11:40 White Blood Count 14.9 Red Blood Count 4.18 Hemoglobin 12.8 Hematocrit 37.7 Mean Corpuscular Volume 90.2 Mean Corpuscular Hemoglobin 30.6 Mean Corpuscular Hemoglobin 34.0 Concent Red Cell Distribution Width 12.9 Platelet Count 158 Mean Platelet Volume 7.9 Neutrophils (%) (Auto) 84.2 Lymphocytes (%) (Auto) 6.2 Monocytes (%) (Auto) 7.7 Eosinophils (%) (Auto) 0.0 Basophils (%) (Auto) 1.9 Neutrophils # (Auto) 12.6 Lymphocytes # (Auto) 0.9 Monocytes # (Auto) 1.1 Eosinophils # (Auto) 0.0 Basophils # (Auto) 0.3 CBC Comment AUTO DIFF Differential Comment AUTO DIFF CONFIRMED Prothrombin Time 14.0 Prothromb Time International 1.3 Ratio Activated Partial 33.7 Thromboplast Time Sodium Level 135 Potassium Level 3.9 Chloride Level 102 Carbon Dioxide Level 21.1 Anion Gap 12 Blood Urea Nitrogen 23 Creatinine 1.90 Estimat Glomerular Filtration 35 Rate Random Glucose 139 Lactic Acid Level 1.3 Calcium Level 9.3 Total Bilirubin 1.0 Aspartate Amino Transf 33 (AST/SGOT) Alanine Aminotransferase 20 (ALT/SGPT) Alkaline Phosphatase 46 Total Creatine Kinase 684 Creatine Kinase MB 1.1 Creatine Kinase MB % 0.2 Troponin I 0.02 Total Protein 6.8 Albumin 3.0 Thyroid Stimulating Hormone 0.456 3rd Gen Urine Collection Type CLEAN CATCH Urine Color YELLOW Urine Turbidity SLIGHT Urine pH 6.0 Urine Specific Richardson 1.012 Urine Protein 100 Urine Glucose (UA) NEG Urine Ketones NEG Urine Occult Blood LARGE Urine Nitrite NEG Urine Bilirubin NEG Urine Leukocyte Esterase LARGE Urine RBC 50-99 Urine WBC 100-200 Urine WBC Clumps MOD Urine Squamous Epithelial 0-5 Cells Urine Amorphous Sediment MOD Urine Bacteria FEW Microscopic Urinalysis Comment CULTURE INDICATED Urine Collection Time 1140 Date/Time Procedure Status Source Growth 11/16/16 11:40 Urine Culture Received Urine Clean Catch Pending 11/16/16 09:00 Aerobic Blood Culture Received Blood Peripheral Pending 11/16/16 09:00 Anaerobic Blood Culture Received Blood Peripheral Pending Result Diagram: 11/16/16 0850 11/16/16 0850 Imaging Last Impressions Abdomen/Pelvis CT 11/16/16 1032 Signed Impressions: Service Date/Time: Wednesday, November 16, 2016 11:15 - CONCLUSION: 1. Right- sided ureteral stent present with moderate right perinephric stranding and mild left perinephric stranding. Mild residual right hydronephrosis. Large calculus in right renal pelvis and numerous additional bilateral nonobstructing calculi. Multiple right renal cysts. Gabriel Hair MD Head CT 11/16/16 0907 Signed Impressions: Service Date/Time: Wednesday, November 16, 2016 09:48 - CONCLUSION: 1. No acute intracranial abnormalities. Left-sided ethmoid and maxillary sinus disease. Gabriel Hair MD Chest X-Ray 11/16/16 0839 Signed Impressions: Service Date/Time: Wednesday, November 16, 2016 08:49 - CONCLUSION: 1. Minimal basilar atelectasis. Stable exam since November 15. Gabriel Hair MD Assessment and Plan Assessment and Plan Sepsis S/t UTI. Pt has a history of kidney stones and kidney stent. He was supposed to have lithotripsy as an outpt. CT abdomen showed: Right-sided ureteral stent present with moderate right perinephric stranding and mild left perinephric stranding; Mild residual right hydronephrosis; Large calculus in right renal pelvis and numerous additional bilateral nonobstructing calculi; Multiple right renal cysts. - continue IV antibiotics. On vancomycin and Zosyn. - urology consult requested. - IVFs. - pain control and anti emetics as needed. - follow culture results. Rhabdo Likely s/t infection and falls. - IVFs. - trend CPK. Chronic renal failure Creatinine not elevated much above baseline. - treatment as above. - avoid nephrotoxic agents. Weakness S/t above. - treatment as above. - PT. Diarrhea Ongoing for the past two days. - continue to monitor. - C diff testing if indicated. - IVFs. PPx: SCDs. Code Status Full. Discussed Condition With Pt, pt's family. Physician Certification 2 Midnight Certification Type: Admission for Inpatient Services Order for Inpatient Services The services are ordered in accordance with Medicare regulations or non- Medicare payer requirements, as applicable. In the case of services not specified as inpatient-only, they are appropriately provided as inpatient services in accordance with the 2-midnight benchmark. Estimated LOS (days): 2 days is the estimated time the patient will need to remain in the hospital, assuming treatment plan goals are met and no additional complications. Post-Hospital Plan: Home Servando Mccarthy DO Nov 16, 2016 17:45
[2016-11-16 19:11] LABS: CKMB 2.3 NG/ML (0.5-3.6)
--- NOTE | 2016-11-16 19:30 | MB ---
cc: THELMA BEAN MD DATE OF CONSULTATION 11/16/2016 REASON FOR CONSULTATION 1. Bilateral kidney stones. 2. UTI 3. Acute on chronic kidney disease. HISTORY OF PRESENT ILLNESS The patient is a 71-year-old male with significant past medical history of kidney stones who recently underwent a cystoscopy, ureteral stent placement by Dr. Vasquez approximately two weeks ago who presented to [facility] emergency department earlier today with significant weakness and several falls at home. The patient states this all started around __ day when he had double hernia repair and was released from the hospital even though he was unable to urinate. He subsequently went to [facility] where a Olivares was placed and approximately 2.5 liters of urine was removed. He went to the [place] approximately a week later and had it removed. He followed up with his urologist who recently did a cystoscopy and stent placement. However, he is not sure if he has had lithotripsy done recently or not. His first kidney stones were back in 2010 and subsequently back in 2012. For the past two weeks though he started feeling weak and ____ fevers and chills. Earlier last night, he was sitting at the table and all of a sudden fell down. He went to the emergency department yesterday and was given Bactrim after receiving a dose of IV antibiotics for a urinary tract infection. However, he continued to have symptoms overnight of weakness as well as fevers and he eventually came back to the hospital for further evaluation. He also notes he had diarrhea that black. He has not had much intake by mouth over the last couple of days as well. In the emergency room, he had a CT of abdomen and pelvis without contrast done which showed bilateral nonobstructing stones as well as bilateral perinephric stranding with a right ureteral stent in proper position. He appeared to have a septic picture so he was transferred to [facility] and admitted the ICU. Currently, he feels better. He denies any flank pain or abdominal pain at this time. Denies dysuria or hematuria. He was scheduled to see Dr. Vasquez tomorrow to have a procedure done. Denies any history of prostate cancer. Denies nausea, vomiting at this time or fevers or chills. REVIEW OF SYSTEMS See HPI. Otherwise all systems reviewed. PAST MEDICAL HISTORY 1. Kidney stones, 2. History of urinary retention, 3. History of hernias. 4. History of basal cell cancer PAST SURGICAL HISTORY 1. Status post bilateral inguinal repair 2. Status post cystoscopy and right ureteral stent insertion 3. Multiple lithotripsies in the past. ALLERGIES ASPIRIN MEDICATIONS Home, Bactrim double strength one p.o. b.i.d. FAMILY HISTORY His father had kidney stones. Denies any history of prostate cancer in the family. SOCIAL HISTORY Denies smoking, alcohol or drugs. PHYSICAL EXAMINATION VITAL SIGNS: Temperature 100, pulse 82, respiratory rate 22, BP 110/65. 95% on room air. GENERAL: He is alert and oriented times three in no apparent distress, pleasant, cooperative gentleman appears stated age. HEENT: Normocephalic, atraumatic. No scleral icterus. Pupils equal round reactive to light. Extraocular muscles intact. NECK: Supple. Trachea is midline. No JVD. LUNGS: Clear to auscultation bilaterally. No wheezes, rales or rhonchi. HEART: Regular rate and rhythm. No murmurs or gallops, rubs. ABDOMEN: Soft, nontender, positive bowel sounds. Nondistended. No peritoneal signs. No CVA tenderness bilaterally. GENITOURINARY:: Penis is circumcised. Testes descended bilaterally. Normal size and consistency. Prostate exam not indicated at this time. EXTREMITIES: Nontender, no clubbing, cyanosis or edema. MUSCULOSKELETAL: Full range of motion all extremities, 5/5 strength SKIN: No ulcers or rashes. PSYCHIATRIC: Normal affect. LABORATORY DATA White count 14.9, hemoglobin 12.8, hematocrit 37.7, platelet count 158. Sodium 135, potassium 3.9, chloride 102, bicarb 21, BUN 23, creatinine 1.90, glucose 139. His urine showed urine pH of 6.0 with specific gravity 1.012, large occult blood, large leukocyte esterase, negative nitrates, culture currently pending. IMAGING STUDIES Abdomen and pelvis CT without contrast images reviewed. Reviewed radiologist's report. The patient has bilateral nonobstructing stones as well as bilateral perinephric stranding, right ureteral seems to be in proper position with mild residual right hydronephrosis. ASSESSMENT The patient is a 71-year-old male with a history of kidney stones who is admitted for weakness, dehydration, UTI and bilateral kidney stones. PLAN Recommend continuing IV antibiotics and IV fluids at this time pending urine culture results. After reviewing the CT, there does not seem to be a urological indication for intervention at this time as far as kidney stones as they not do not seem to be causing a blockage. However, I do recommend he is treated for his kidney stones as an outpatient. If his condition deteriorates, we will consider repeat imaging in the next several days, otherwise, the small amount of hydronephrosis on the right side is commonly seen with stent in place. Thank you for this consult. Please call if any questions. MD JT Deleon/ /6:51 PM /7:04 PM
[2016-11-16] MEDS: SODIUM CHLORIDE 0.9% FLUSH 5 ML FLUSH IVF SCH (20:10)
[2016-11-16] MEDS: PIPERACIL-TAZO 3.375 GM PREMIX 50 ML IV SCH (20:10)
[2016-11-16] MEDS ORDERED: SODIUM CHLORIDE 0.9% FLUSH 5 ML FLUSH FLUSH SCH (21:00)
[2016-11-16] MEDS: ACETAMINOPHEN/HYDROcodone 325 MG/5 MG TAB PO PRN (23:10)
[2016-11-17] VITALS (15 sets, daily range): BP systolic 78–132; BP diastolic 48–80; PULSE 57–90; RESP 13–28; TEMP 97.9–100.2; O2SAT 87–100
[2016-11-17] MEDS ORDERED: CHLORHEXIDINE GLUCONATE 2 % 1 PACK (2 CLOTHS)(extra cloths) TOP PRN (00:30)
[2016-11-17 01:03] LABS: CKMB 1.6 NG/ML (0.5-3.6)
[2016-11-17] MEDS: SODIUM CHLOR 0.9% 1000 ML INJ 1,000 ML IV SCH ×4 (01:42→21:14)
[2016-11-17 01:55] LABS: C. DIFF EPI 027 PRESUMPTIVE NEGATIVE (NEGATIVE); C. DIFF TOXIN PCR NEGATIVE (NEGATIVE)
[2016-11-17] MEDS: PIPERACIL-TAZO 3.375 GM PREMIX 50 ML IV SCH ×4 (03:52→21:13)
[2016-11-17] MEDS: CHLORHEXIDINE GLUCONATE 2 % 1 PACK (2 CLOTHS)(taper/protocol) TOP SCH (03:52)
[2016-11-17] MEDS: ACETAMINOPHEN/HYDROcodone 325 MG/5 MG TAB PO PRN ×2 (04:52→10:49)
[2016-11-17] MEDS ORDERED: VANCOMYCIN INJ 1,250 MG in SODIUM CHLOR 0.9% 250 ML INJ 250 ML IV SCH (06:00)
[2016-11-17 06:54] LABS: AUTOMATED NEUTROPHIL # 9.3 TH/MM3 (1.8-7.7); BASOPHIL % 0.2 % (0.0-2.0); HEMATOCRIT 33.3 % (39.0-51.0); HEMO FLAGS DIFF FINAL; LYMPHOCYTE # 0.9 TH/MM3 (1.0-4.8); MEAN CORPUSCULAR HEMOGLOBIN 30.8 PG (27.0-34.0); MEAN CORPUSCULAR HGB CONC 33.9 % (32.0-36.0); MONO % 10.8 % (0.0-8.0); PLATELET COUNT 111 TH/MM3 (150-450); RED BLOOD COUNT 3.66 MIL/MM3 (4.50-5.90); RED CELL DISTRIBUTION WIDTH 13.8 % (11.6-17.2); WHITE BLOOD COUNT 11.5 TH/MM3 (4.0-11.0)
[2016-11-17 07:10] LABS: BICARBONATE 21.3 MEQ/L (21.0-32.0); POTASSIUM 3.6 MEQ/L (3.5-5.1)
[2016-11-17] MEDS: DOCUSATE SODIUM 100 MG CAP PO SCH ×2 (09:00→21:00)
[2016-11-17] MEDS: SODIUM CHLORIDE 0.9% FLUSH 5 ML FLUSH IVF SCH ×2 (09:20→21:13)
--- NOTE | 2016-11-17 12:16 | EKG ---
Date Performed: 11/16/2016 Time Performed: 08:47:18 PTAGE: 71 years EKG: Sinus rhythm with PAC(s) Septal T wave changes are nonspecific Borderline ECG PREVIOUS TRACING : 11/15/2016 17.43 DOCTOR: Patrick Arias Interpretating Date/Time 11/17/2016 12:16:10
--- NOTE | 2016-11-17 14:50 | HHI.PR ---
Subjective Remarks The pt was resting comfortably in bed. He requested a regular diet. He said he urinated dark urine earlier today. He had no pain. Rectal tube has been placed for diarrhea. at the bedside. Discussed with nursing. Objective Vitals Vital Signs Date Time Temp Pulse Resp B/P Pulse Ox O2 Delivery O2 Flow Rate FiO2 11/17/16 13:32 93 11/17/16 10:00 67 11/17/16 09:17 65 11/17/16 09:17 97.9 65 17 105/78 99 11/17/16 06:00 66 11/17/16 04:08 102/58 11/17/16 04:00 99.8 72 28 78/48 87 11/17/16 04:00 72 11/17/16 02:00 66 11/17/16 00:10 18 11/17/16 00:00 79 11/17/16 00:00 100.2 80 13 87/50 92 11/16/16 22:00 79 11/16/16 20:00 100.0 80 20 92/54 97 11/16/16 20:00 80 11/16/16 19:41 98 11/16/16 18:00 80 11/16/16 16:00 100.0 82 22 110/66 95 11/16/16 16:00 82 I/O 11/16/16 11/16/16 11/16/16 11/17/16 11/17/16 11/17/16 07:00 15:00 23:00 07:00 15:00 23:00 Intake Total 5300 ml 1546 ml 1202 ml Output Total 250 ml 750 ml Balance 5300 ml 1296 ml 452 ml Intake Oral 700 ml 90 ml IV Total 5300 ml 846 ml 1112 ml Output Urine Total 250 ml 350 ml Stool Total 400 ml # Voids 2 # Bowel Movements 1 4 Result Diagram: 11/17/16 0557 11/17/16 0557 Imaging Last Impressions Abdomen/Pelvis CT 11/16/16 1032 Signed Impressions: Service Date/Time: Wednesday, November 16, 2016 11:15 - CONCLUSION: 1. Right- sided ureteral stent present with moderate right perinephric stranding and mild left perinephric stranding. Mild residual right hydronephrosis. Large calculus in right renal pelvis and numerous additional bilateral nonobstructing calculi. Multiple right renal cysts. Gabriel Hair MD Head CT 11/16/16 0907 Signed Impressions: Service Date/Time: Wednesday, November 16, 2016 09:48 - CONCLUSION: 1. No acute intracranial abnormalities. Left-sided ethmoid and maxillary sinus disease. Gabriel Hair MD Chest X-Ray 11/16/16 0839 Signed Impressions: Service Date/Time: Wednesday, November 16, 2016 08:49 - CONCLUSION: 1. Minimal basilar atelectasis. Stable exam since November 15. Gabriel Hair MD Objective Remarks GENERAL: Well-nourished, well-developed patient. SKIN: Warm and dry. HEAD: Normocephalic. EYES: No scleral icterus. No injection or drainage. NECK: Supple, trachea midline. No JVD or lymphadenopathy. CARDIOVASCULAR: Regular rate and rhythm without murmurs, gallops or rubs. RESPIRATORY: Breath sounds equal bilaterally. No accessory muscle use. GASTROINTESTINAL: Abdomen soft, mild suprapubic tenderness, nondistended. MUSCULOSKELETAL: No cyanosis, or edema. BACK: Nontender without obvious deformity. No CVA tenderness. NEURO: No obvious focal neurological deficit. PSYCH: Mood and affect appropriate. Medications and IVs Current Medications Medications (Trade) Dose Ordered Sig/Chris Route Start Time Stop Time Status Last Admin (Zofran Inj) 4 mg Q6H PRN IV 11/16/16 10:45 (NS Flush) 2 ml BID IVF 11/16/16 21:00 11/17/16 09:20 IV Flush 2 ml 2 ml UNSCH PRN IVF 11/16/16 10:45 (NS 1000 ml Inj) 1,000 ml @ 150 mls/hr Q6H40M IV 11/16/16 11:40 11/17/16 07:40 (Tylenol) 650 mg Q4H PRN PO 11/16/16 11:45 (Milk Of Magnesia Liq) 30 ml Q12H PRN PO 11/16/16 11:45 (Tylenol) 650 mg Q6H PRN PO 11/16/16 11:45 ([place] 5-325 Mg) 1 tab Q4H PRN PO 11/16/16 11:45 11/17/16 10:49 ([place] 7.5-325 Mg) 1 tab Q4H PRN PO 11/16/16 11:45 (Dilaudid Pf Inj) 0.5 mg Q3H PRN IV 11/16/16 11:45 Naloxone HCl 0.4 mg 0.4 mg UNSCH PRN IV 11/16/16 11:45 (Vancomycin Consult Pharmacy) 0 ml @ 0 mls/hr UNSCH OTHER 11/16/16 11:45 (Colace) 100 mg Q12HR PO 11/16/16 12:15 Miscellaneous Information SPECIFIC LAB TO BE DRAWN:VA... ONCE ONCE XX 11/20/16 01:45 11/20/16 01:46 (Zosyn 3.375 Gm Premix) 50 ml @ 100 mls/hr Q6H IV 11/16/16 21:00 11/17/16 09:20 Miscellaneous Information Patient in critical care unit? Ass... Q361D XX 11/17/16 00:30 11/17/16 00:30 (Chlorhexidine 2% Cloth) 3 pack DAILY@04 TOP 11/17/16 04:00 11/21/16 04:01 11/17/16 03:52 Chlorhexidine Gluconate 3 pack 3 pack UNSCH PRN TOP 11/17/16 00:30 11/22/16 00:24 (Vancomycin Inj/ NS 500 ml Inj) 515 ml @ 257.5 mls/ hr Q24H IV 11/18/16 02:00 A/P Assessment and Plan Sepsis S/t UTI. Pt has a history of kidney stones and kidney stent. He was supposed to have lithotripsy as an outpt. CT abdomen showed: Right-sided ureteral stent present with moderate right perinephric stranding and mild left perinephric stranding; Mild residual right hydronephrosis; Large calculus in right renal pelvis and numerous additional bilateral nonobstructing calculi; Multiple right renal cysts. Appreciate urology consult. No indication for intervention at this time. - continue IV antibiotics. On vancomycin and Zosyn. - follow-up with urology. - IVFs. - pain control and anti emetics as needed. - follow culture results. Hypotension Likely s/t sepsis and ongoing diarrhea. - antibiotics as above. - IVFs. - continue to monitor in the ICU. Rhabdo Likely s/t infection and falls. CPK has improved. - IVFs. - trend CPK. Chronic renal failure/ oliguria Creatinine improved with IVFs. Urine output has been minimal 1/ per nursing. - treatment as above. - avoid nephrotoxic agents. - replace Olivares if needed. - start Flomax. - follow up with urology. Weakness S/t above. - treatment as above. - PT. Diarrhea Ongoing for the past two days. C diff negative. Rectal tube in place. - continue to monitor. - remove rectal tube when feasible. - IVFs. PPx: SCDs. Discharge Planning Awaiting clinical improvement. Servando Mccarthy DO Nov 17, 2016 14:50
[2016-11-17] MEDS: TAMSULOSIN HCL 0.4 MG CAP PO SCH (15:42)
[2016-11-17 17:49] LABS: CKMB 2.7 NG/ML (0.5-3.6)
[2016-11-17] MEDS: ACETAMINOPHEN/HYDROcodone 325 MG/7.5 MG TAB PO PRN (20:17)
[2016-11-18] VITALS (11 sets, daily range): BP systolic 91–118; BP diastolic 53–67; PULSE 64–84; RESP 15–23; TEMP 98.1–98.9; O2SAT 94–99
[2016-11-18] MEDS: ACETAMINOPHEN/HYDROcodone 325 MG/5 MG TAB PO PRN (00:54)
[2016-11-18] MEDS ORDERED: VANCOMYCIN INJ 1,500 MG in SODIUM CHLORID 0.9% 500 ML INJ 500 ML IV SCH (02:00)
[2016-11-18] MEDS: PIPERACIL-TAZO 3.375 GM PREMIX 50 ML IV SCH ×3 (03:00→15:30)
[2016-11-18] MEDS: CHLORHEXIDINE GLUCONATE 2 % 1 PACK (2 CLOTHS)(taper/protocol) TOP SCH (04:00)
[2016-11-18] MEDS: SODIUM CHLOR 0.9% 1000 ML INJ 1,000 ML IV SCH ×2 (04:42→10:33)
[2016-11-18] MEDS: ACETAMINOPHEN/HYDROcodone 325 MG/7.5 MG TAB PO PRN (04:42)
[2016-11-18 05:22] LABS: BICARBONATE 20.7 MEQ/L (21.0-32.0); MAGNESIUM 1.7 MG/DL (1.5-2.5)
[2016-11-18 05:44] LABS: MEAN CELL VOLUME 90.8 FL (80.0-100.0); MEAN CORPUSCULAR HEMOGLOBIN 30.8 PG (27.0-34.0); MEAN CORPUSCULAR HGB CONC 33.9 % (32.0-36.0); PLATELET COUNT 123 TH/MM3 (150-450); RED BLOOD COUNT 3.63 MIL/MM3 (4.50-5.90); RED CELL DISTRIBUTION WIDTH 14.4 % (11.6-17.2); REVIEW FLAG FINAL; WHITE BLOOD COUNT 9.6 TH/MM3 (4.0-11.0)
[2016-11-18] MEDS: DOCUSATE SODIUM 100 MG CAP PO SCH (08:51)
[2016-11-18] MEDS: TAMSULOSIN HCL 0.4 MG CAP PO SCH (08:51)
[2016-11-18] MEDS: SODIUM CHLORIDE 0.9% FLUSH 5 ML FLUSH IVF SCH (08:51)
--- NOTE | 2016-11-18 16:25 | HHI.PR ---
Subjective Remarks The pt wanted to go home. He had no acute complaints. He said he was weak yesterday but that it was now better. Nursing was at the bedside. Objective Vitals Vital Signs Date Time Temp Pulse Resp B/P Pulse Ox O2 Delivery O2 Flow Rate FiO2 11/18/16 14:00 79 11/18/16 12:00 80 11/18/16 12:00 98.1 80 15 118/67 95 11/18/16 10:00 73 11/18/16 09:22 96 21 11/18/16 08:00 70 11/18/16 08:00 98.1 70 16 91/53 97 11/18/16 06:00 74 11/18/16 04:10 76 11/18/16 04:00 64 20 94/55 94 11/18/16 02:00 66 11/18/16 00:00 84 11/18/16 00:00 98.6 71 23 108/66 95 11/17/16 22:00 74 11/17/16 20:00 70 11/17/16 20:00 98.4 90 20 132/80 90 11/17/16 19:40 99 11/17/16 18:00 61 I/O 11/17/16 11/17/16 11/17/16 11/18/16 11/18/16 11/18/16 07:00 15:00 23:00 07:00 15:00 23:00 Intake Total 1202 ml 3786 ml 1642 ml 1535 ml Output Total 750 ml 1650 ml 500 ml 925 ml Balance 452 ml 2136 ml 1142 ml 610 ml Intake Oral 90 ml 1530 ml 720 ml 360 ml IV Total 1112 ml 2256 ml 922 ml 1175 ml Output Urine Total 350 ml 850 ml 500 ml 925 ml Stool Total 400 ml 800 ml 0 ml Result Diagram: 11/18/16 0532 11/18/16 0440 Imaging Last Impressions Abdomen/Pelvis CT 11/16/16 1032 Signed Impressions: Service Date/Time: Wednesday, November 16, 2016 11:15 - CONCLUSION: 1. Right- sided ureteral stent present with moderate right perinephric stranding and mild left perinephric stranding. Mild residual right hydronephrosis. Large calculus in right renal pelvis and numerous additional bilateral nonobstructing calculi. Multiple right renal cysts. Gabriel Hair MD Head CT 11/16/16 0907 Signed Impressions: Service Date/Time: Wednesday, November 16, 2016 09:48 - CONCLUSION: 1. No acute intracranial abnormalities. Left-sided ethmoid and maxillary sinus disease. Gabriel Hair MD Chest X-Ray 11/16/16 0839 Signed Impressions: Service Date/Time: Wednesday, November 16, 2016 08:49 - CONCLUSION: 1. Minimal basilar atelectasis. Stable exam since November 15. Gabriel Hair MD Objective Remarks GENERAL: Well-nourished, well-developed patient. SKIN: Warm and dry. HEAD: Normocephalic. EYES: No scleral icterus. No injection or drainage. NECK: Supple, trachea midline. No JVD or lymphadenopathy. CARDIOVASCULAR: Regular rate and rhythm without murmurs, gallops or rubs. RESPIRATORY: Breath sounds equal bilaterally. No accessory muscle use. GASTROINTESTINAL: Abdomen soft, no tenderness, nondistended. MUSCULOSKELETAL: No cyanosis, or edema. BACK: Nontender without obvious deformity. No CVA tenderness. NEURO: No obvious focal neurological deficit. PSYCH: Mood and affect appropriate. Medications and IVs Current Medications Medications (Trade) Dose Ordered Sig/Chris Route Start Time Stop Time Status Last Admin (Zofran Inj) 4 mg Q6H PRN IV 11/16/16 10:45 (NS Flush) 2 ml BID IVF 11/16/16 21:00 11/18/16 08:51 IV Flush 2 ml 2 ml UNSCH PRN IVF 11/16/16 10:45 (NS 1000 ml Inj) 1,000 ml @ 150 mls/hr Q6H40M IV 11/16/16 11:40 11/18/16 10:33 (Tylenol) 650 mg Q4H PRN PO 11/16/16 11:45 (Milk Of Magnesia Liq) 30 ml Q12H PRN PO 11/16/16 11:45 (Tylenol) 650 mg Q6H PRN PO 11/16/16 11:45 ([place] 5-325 Mg) 1 tab Q4H PRN PO 11/16/16 11:45 11/18/16 00:54 ([place] 7.5-325 Mg) 1 tab Q4H PRN PO 11/16/16 11:45 11/18/16 04:42 (Dilaudid Pf Inj) 0.5 mg Q3H PRN IV 11/16/16 11:45 Naloxone HCl 0.4 mg 0.4 mg UNSCH PRN IV 11/16/16 11:45 (Vancomycin Consult Pharmacy) 0 ml @ 0 mls/hr UNSCH OTHER 11/16/16 11:45 (Colace) 100 mg Q12HR PO 11/16/16 12:15 Miscellaneous Information SPECIFIC LAB TO BE DRAWN:[facility]... ONCE ONCE XX 11/20/16 01:45 11/20/16 01:46 (Zosyn 3.375 Gm Premix) 50 ml @ 100 mls/hr Q6H IV 11/16/16 21:00 11/18/16 15:30 Miscellaneous Information Patient in critical care unit? Ass... Q361D XX 11/17/16 00:30 11/17/16 00:30 (Chlorhexidine 2% Cloth) 3 pack DAILY@04 TOP 11/17/16 04:00 11/21/16 04:01 11/18/16 04:00 Chlorhexidine Gluconate 3 pack 3 pack UNSCH PRN TOP 11/17/16 00:30 11/22/16 00:24 (Vancomycin Inj/ NS 500 ml Inj) 515 ml @ 257.5 mls/ hr Q24H IV 11/18/16 02:00 11/18/16 00:56 (Flomax) 0.4 mg DAILY PO 11/17/16 15:00 11/18/16 08:51 A/P Assessment and Plan Sepsis S/t UTI. Pt has a history of kidney stones and kidney stent. He was supposed to have lithotripsy as an outpt. CT abdomen showed: Right-sided ureteral stent present with moderate right perinephric stranding and mild left perinephric stranding; Mild residual right hydronephrosis; Large calculus in right renal pelvis and numerous additional bilateral nonobstructing calculi; Multiple right renal cysts. Appreciate urology consult. No indication for intervention at this time. - continue IV antibiotics. Continue Zosyn. D/c vancomycin. - follow-up with urology as an outpt. Per pt he is to have lithotripsy on Tuesday. - IVFs. - pain control and anti emetics as needed. - follow culture results. Hypotension Likely s/t sepsis and ongoing diarrhea. Improving. - antibiotics as above. - IVFs. Rhabdo Likely s/t infection and falls. CPK has improved. - IVFs. Chronic renal failure/ oliguria Creatinine improved with IVFs. Urine outpt also improved 11/18. - treatment as above. - avoid nephrotoxic agents. - start Flomax. - follow up with urology. Weakness S/t above. - treatment as above. - PT. - will likely d/c home with [facility] in 1-2 days. Diarrhea Ongoing for the past two days. C diff negative. Improved. - continue to monitor. - IVFs. PPx: SCDs. Discharge Planning Transfer to the floor. Servando Mccarthy DO Nov 18, 2016 16:25
[2016-11-18] MEDS ORDERED: LEVA750T PO (16:50)
--- NOTE | 2016-11-18 16:50 | HHI.DCPOC ---
Discharge Care Plan Diagnosis: (1) Severe sepsis (2) UTI (urinary tract infection) (3) Renal insufficiency Goals to Promote Your Health * To prevent worsening of your condition and complications * To maintain your health at the optimal level Directions to Meet Your Goals Take your medications as prescribed Follow your dietary instruction Follow activity as directed Keep your appointments as scheduled Take your immunizations and boosters as scheduled If your symptoms worsen call your PCP, if no PCP go to Urgent Care Center or Emergency Room Smoking is Dangerous to Your Health. Avoid second hand smoke Call the 24-hour hour crisis hotline for domestic abuse at Servando Mccarthy DO Nov 18, 2016 16:50
--- NOTE | 2016-11-18 16:56 | HHI.DS ---
Discharge Summary Admission Date Nov 16, 2016 at 10:37 Discharge Date: Nov 18, 2016 Admitting Diagnosis severe sepsis. UTI. Acute on chronic renal disease. (1) Acute kidney injury superimposed on chronic kidney disease ICD Code: N17.9 (2) Severe sepsis ICD Code: A41.9 Diagnosis: Principal (3) UTI (urinary tract infection) ICD Code: N39.0 Procedures None. Brief History - From Admission The patient is a 71-year-old male with a past medical history of kidney stones who is presenting to the hospital with significant weakness and falls. The patient says that on he had double hernia repair and was released from the hospital even though he had been unable to urinate today. He went to the [facility] where a Olivares was placed and he followed up at the CT to have it removed. He has been following up with urology and had a cystoscopy 2 weeks ago which revealed kidney stones. A stent was placed. This Tuesday the patient started to feel very weak and hot. He was sitting at the table and all of a sudden just fell down. He went to the emergency department yesterday and was given Bactrim after receiving a dose of antibiotics IV for a urinary tract infection. He continued to have symptoms of right years and weakness as well as fever so he came to the hospital. He has endorsed a diarrhea that is the color of black water. Says he has a history of kidney stones and wants know where it's coming from. He endorses decreased by mouth intake over the past few days. He denies any nausea or vomiting. CBC/BMP: 11/18/16 0532 11/18/16 0440 Significant Findings Laboratory Tests Test 11/16/16 11/16/16 11/16/16 11/16/16 08:50 11:40 18:11 23:14 White Blood Count 14.9 TH/MM3 (4.0-11.0) Red Blood Count 4.18 MIL/MM3 (4.50-5.90) Hemoglobin 12.8 GM/DL (13.0-17.0) Hematocrit 37.7 % (39.0-51.0) Neutrophils (%) (Auto) 84.2 % (16.0-70.0) Lymphocytes (%) (Auto) 6.2 % (9.0-44.0) Neutrophils # (Auto) 12.6 TH/MM3 (1.8-7.7) Lymphocytes # (Auto) 0.9 TH/MM3 (1.0-4.8) Monocytes # (Auto) 1.1 TH/MM3 (0-0.9) Basophils # (Auto) 0.3 TH/MM3 (0-0.2) Prothrombin Time 14.0 SEC (9.8-11.6) Activated Partial 33.7 SEC Thromboplast Time (24.3-30.1) Sodium Level 135 MEQ/L (136-145) Blood Urea Nitrogen 23 MG/DL (7-18) Creatinine 1.90 MG/DL (0.60-1.30) Estimat Glomerular Filtration 35 ML/MIN (>89) Rate Random Glucose 139 MG/DL (74-106) Total Creatine Kinase 684 U/L 766 U/L 750 U/L (39-308) (39-308) (39-308) Albumin 3.0 GM/DL (3.4-5.0) Urine Protein 100 mg/dL (NEG-TRACE) Urine Occult Blood LARGE (NEG) Urine Leukocyte Esterase LARGE (NEG) Urine RBC 50-99 /hpf (0-3) Urine WBC 100-200 /hpf (0-5) Urine WBC Clumps MOD (NONE) Urine Bacteria FEW /hpf (NONE) Test 11/17/16 11/17/16 11/18/16 11/18/16 05:57 16:43 04:40 05:32 White Blood Count 11.5 TH/MM3 (4.0-11.0) Red Blood Count 3.66 MIL/MM3 3.63 MIL/MM3 (4.50-5.90) (4.50-5.90) Hemoglobin 11.3 GM/DL 11.2 GM/DL (13.0-17.0) (13.0-17.0) Hematocrit 33.3 % 33.0 % (39.0-51.0) (39.0-51.0) Platelet Count 111 TH/MM3 123 TH/MM3 (150-450) (150-450) Neutrophils (%) (Auto) 81.0 % (16.0-70.0) Lymphocytes (%) (Auto) 8.0 % (9.0-44.0) Monocytes (%) (Auto) 10.8 % (0.0-8.0) Neutrophils # (Auto) 9.3 TH/MM3 (1.8-7.7) Lymphocytes # (Auto) 0.9 TH/MM3 (1.0-4.8) Monocytes # (Auto) 1.2 TH/MM3 (0-0.9) Blood Urea Nitrogen 23 MG/DL (7-18) 20 MG/DL (7-18) Creatinine 1.63 MG/DL 1.41 MG/DL (0.60-1.30) (0.60-1.30) Estimat Glomerular Filtration 42 ML/MIN (>89) 50 ML/MIN (>89) Rate Total Creatine Kinase 405 U/L (39-308) Chloride Level 112 MEQ/L (98-107) Carbon Dioxide Level 20.7 MEQ/L (21.0-32.0) Random Glucose 135 MG/DL (74-106) Imaging Last Impressions Abdomen/Pelvis CT 11/16/16 1032 Signed Impressions: Service Date/Time: Wednesday, November 16, 2016 11:15 - CONCLUSION: 1. Right- sided ureteral stent present with moderate right perinephric stranding and mild left perinephric stranding. Mild residual right hydronephrosis. Large calculus in right renal pelvis and numerous additional bilateral nonobstructing calculi. Multiple right renal cysts. Gabriel Hair MD Head CT 11/16/16 0907 Signed Impressions: Service Date/Time: Wednesday, November 16, 2016 09:48 - CONCLUSION: 1. No acute intracranial abnormalities. Left-sided ethmoid and maxillary sinus disease. Gabriel Hair MD Chest X-Ray 11/16/16 0838 Signed Impressions: Service Date/Time: Wednesday, November 16, 2016 08:49 - CONCLUSION: 1. Minimal basilar atelectasis. Stable exam since November 15. Gabriel Hair MD PE at Discharge GENERAL: Well-nourished, well-developed patient. SKIN: Warm and dry. HEAD: Normocephalic. EYES: No scleral icterus. No injection or drainage. NECK: Supple, trachea midline. No JVD or lymphadenopathy. CARDIOVASCULAR: Regular rate and rhythm without murmurs, gallops or rubs. RESPIRATORY: Breath sounds equal bilaterally. No accessory muscle use. GASTROINTESTINAL: Abdomen soft, no tenderness, nondistended. MUSCULOSKELETAL: No cyanosis, or edema. BACK: Nontender without obvious deformity. No CVA tenderness. NEURO: No obvious focal neurological deficit. PSYCH: Mood and affect appropriate. Hospital Course Sepsis S/t UTI. Pt has a history of kidney stones and kidney stent. He was supposed to have lithotripsy as an outpt. CT abdomen showed: Right-sided ureteral stent present with moderate right perinephric stranding and mild left perinephric stranding; Mild residual right hydronephrosis; Large calculus in right renal pelvis and numerous additional bilateral nonobstructing calculi; Multiple right renal cysts. Urology was consulted. No indication for intervention at this time. He was continued on IV antibiotics including vancomycin and Zosyn. He received IVFs and pain control as needed. Cultures were negative. He demanded to leave the hospital against medical advice on 11/18/16. He will follow-up with urology as an outpt. Per pt he is to have lithotripsy on Tuesday. He will be given a script for Levaquin. Hypotension Improved with antibiotics and IVFs. Encouraged PO intake. Rhabdo CPK improved with IVFs. Encouraged PO intake. Chronic renal failure/ oliguria Creatinine improved with IVFs. Urine outpt also improved 11/18. He was started on Flomax. He will follow up with urology. Weakness PT recommended rehab vs home health. The pt appeared unsteady on his feet so discharge was not recommended at this time. The pt demanded to go AMA. He was told of the risks of leaving the hospital against medical advice and he acknowledged those risks. He has capacity to leave the hospital at this time. He will be given a script for Levaquin as above. Diarrhea Ongoing for the past two days. C diff negative. Improved. He received IVFs. Pt Condition on Discharge: Fair Discharge Disposition: Discharge Home Discharge Time: > 30 minutes Discharge Instructions Follow up Referrals: PCP Follow-up - 1 Week Urology - 1 Week New Medications: Levofloxacin (Levaquin) 750 Mg Tab 750 MG PO DAILY Infection #7 Ref 0 TAB Discontinued Medications: Sulfamethoxazole-Trimethoprim (Bactrim DS) 800-160 Mg Tab 1 TAB PO BID Infection #20 Ref 0 TAB Servando Mccarthy DO Nov 18, 2016 16:56
[2016-11-20] MEDS ORDERED: PHARMACY ORDERED LAB XX ONE (01:45)
== END 2016-11-18 17:25 | disposition left against medical advice (07) | DRG 872 ==
LOC: PHED 08:24 → PHEDA 10:37 → HIMN 15:25
PROVIDERS: ADMIT Hospitalist; ATTEND Hospitalist
PROC: 0D9P30Z Drainage of Rectum with Drainage Device, Percutaneous Approach (ICD-10-PCS; principal; 2016-11-17)
DX: A41.9 Sepsis, unspecified organism (principal); N17.9 Acute kidney failure, unspecified; N13.2 Hydronephrosis with renal and ureteral calculous obstruction; N39.0 Urinary tract infection, site not specified; N28.1 Cyst of kidney, acquired; R65.20 Severe sepsis without septic shock; N18.9 Chronic kidney disease, unspecified; S00.81XA Abrasion of other part of head, initial encounter; S00.412A Abrasion of left ear, initial encounter; W19.XXXA Unspecified fall, initial encounter; Y93.9 Activity, unspecified; Y92.9 Unspecified place or not applicable; R19.7 Diarrhea, unspecified; Z85.828 Personal history of other malignant neoplasm of skin; R53.1 Weakness; E86.0 Dehydration; R26.81 Unsteadiness on feet; Z87.442 Personal history of urinary calculi; Z87.440 Personal history of urinary (tract) infections
CPT/HCPCS: 70450; 71010; 74176; 80048; 80053; 81001; 82550; 82552; 83605; 83735; 84443; 84484; 85025; 85027; 85610; 85730; 87040; 87077; 87086; 87186; 87493; 87641; 93005; 96361; 96365; 96367; J0696; J2543; J3370; J7030; J7040; J7050